=== PATIENT | female | born 1965 | race Caucasian/White ===

== ENCOUNTER → 2020-05-02 11:00 | Outpatient (REF) | payer MEDICAID, SELFPAY ==
--- NOTE | 2020-05-02 11:30 | CA_ITS ---
Transthoracic Echocardiogram Patient (Last, First, Middle): Darlene Woods, Gender: Female Date of : 1965 Age: 54 Procedure Date: 05/02/2020 Procedure Type: Transthoracic Echocardiogram Location: OP Height: 162.56 cm Weight: 72.58 kg BSA: 1.78 m2 Heart Rate: bpm BP: 105 / 66 mmHg [employer] Maintenance Consultant: TERRY Referring MD: Quirino Metcalf MD Symptoms: [facility] [place] Quality: Fair ECG Rhythm: Sinus Conclusions: - The left ventricular systolic function is normal. The visually estimated ejection fraction is between 60-65%. - No obvious valvular pathology seen on this study. Findings Left Ventricle Normal left ventricular cavity size. There is mildly increased left ventricular wall thickness. The left ventricular systolic function is normal. The visually estimated ejection fraction is between 60-65%. There is no evidence of regional wall motion abnormalities. Diastolic function is normal for age. Right Ventricle Normal right ventricular cavity size and systolic function. Atria The left atrium is normal in size. The right atrium is normal in size. Aortic Valve There is a normal trileaflet aortic valve. There is no aortic valve stenosis. There is no aortic valve regurgitation. Mitral Valve The mitral valve appears normal. There is trace mitral valve regurgitation. There is no mitral valve stenosis. Pulmonic Valve The pulmonic valve was not well visualized. Tricuspid Valve Normal tricuspid valve structure. There is trace tricuspid valve regurgitation. The pulmonary artery systolic pressure is normal. Great Vessels The aortic annulus, sinuses of valsalva, and asc aorta are normal in size. Venous The inferior vena cava is normal in size and collapses greater than 50% with inspiration. Pericardium/Pleural There is no evidence of pericardial effusion. Prior Study Comparison No significant change compared to prior study dated: 10/20/2017. Recommendations, Care & Conclusions No obvious valvular pathology seen on this study. Measurements 2D Linear Measurements IVSd: 1.22 0.6-0.9/0.6-1.0 cm LVIDd: 4.25 3.9-5.3/4.2-5.9 cm LVIDd Index: 2.39 2.4-3.2/2.2-3.1 cm/m2 LVIDs: 2.97 2.0-3.6 cm LVPWd: 1.21 0.7-1.1 cm Ao Root: 2.40 2.1-3.5 cm LA Diam: 3.50 2.7-3.8/3.0-4.0 cm LAIDs Index: 1.97 1.5-2.3 cm/m2 LV Mass: 230.16 67-162/88-224 g LV Mass Index: 129.31 43-95/49-115 g/m2 LVOT Diam: 1.90 3.0+(-)1.3 cm 2D Systolic Function EF 4C: 58.60 >55% EF 2C: 70.20 >55% EF BiP: 65.60 >55% Mitral Valve MV Pk E: 0.82 MV PK A: 0.48 MV Decel Time: 182.00 E/A: 1.70 E'Lateral: 10.80 E'Medial: 10.20 E/E' Med: 8.00 E/E' Lat: 7.50 PHT: 53.00 MVA PHT: 4.15 Decel [place]: 4.47 LVOT LVOT Pk Akbar: 1.12 LVOT Mn Akbar: 0.71 LVOT VTI: 0.20 LVOT Pk Grad: 5.00 LVOT Mn Grad: 2.00 LVOT Diam: 1.90 LVOT Area: 2.84 Diastolic Function MV Pk E: 0.82 MV Pk A: 0.48 E/A: 1.70 E'Medial: 10.20 E/E' Med: 8.00 E' Laterial: 10.80 E/E' Lat: 7.50 Tricuspid Valve TR Pk Akbar: 2.24 TR Pk Grad: 20.00 RA Press: 3.00 RVSP: 23.00 Great Vessels Aorta Ao Root-2D: 2.40 2.0-3.7 cm Ao Asc: 2.70 2.1-3.4 cm Ao Arch: 2.70 Updated in Other Vendor System with Status of Final Quirino Metcalf MD electronically signed on 05/05/2020 9:50:52 AM with status of Final
== END ==
LOC: HO.CARD 11:00
PROVIDERS: Visit Provider Internal Medicine
DX: I48.0 Paroxysmal atrial fibrillation (principal)
CPT/HCPCS: 93306

== ENCOUNTER → 2020-06-17 08:53 | Outpatient (BNVA) | payer MEDICAID, SELFPAY | PROVIDERS: PCP Internal Medicine; Referring Provider Internal Medicine; Visit Provider Internal Medicine | DX: I48.0 Paroxysmal atrial fibrillation (principal); I49.8 Other specified cardiac arrhythmias; Z79.01 Long term (current) use of anticoagulants; Z98.890 Other specified postprocedural states | CPT/HCPCS: 99212 ==

== ENCOUNTER → 2020-08-04 09:59 | Outpatient (BNVA) | payer MEDICAID, SELFPAY | PROVIDERS: PCP Internal Medicine; Visit Provider Internal Medicine | DX: I48.0 Paroxysmal atrial fibrillation (principal); I49.8 Other specified cardiac arrhythmias; Z98.890 Other specified postprocedural states; Z51.81 Encounter for therapeutic drug level monitoring; Z79.899 Other long term (current) drug therapy; Z79.01 Long term (current) use of anticoagulants | CPT/HCPCS: 93005; 99212 ==

== ENCOUNTER 2020-08-05 10:29 | Emergency (ER) | payer MEDICAID, SELFPAY ==
[2020-08-05 10:54] VITALS: BP 128/77; PULSE 101; RESP 16; TEMP 36.6; O2SAT 96; BMI 28.3
--- NOTE | 2020-08-05 11:02 | ED_ITS ---
HPI - Skin/Abscess/Foreign Bdy General Chief complaint: Skin/Abscess/Foreign Body Stated complaint: itchy whole body Time Seen by Provider: 08/05/20 10:50 Source: patient Mode of arrival: ambulatory History of Present Illness HPI narrative: 54-year-old female with a past medical history of hypertension, hyperlipidemia, PAF on Xarelto, hypothyroid, presenting to the ED complaining of generalized body pruritus/erythema/rash x a few days. Denies new exposures/products, recent travel, others with similar symptoms, insect bites, new food or medication. Denies shortness of breath, wheezing, oral swelling MD complaint: rash Related Data Home Medications Medication Instructions Recorded Confirmed ferrous sulfate 325 mg (65 mg 325 mg PO DAILY 06/17/20 08/04/20 iron) tablet,delayed release levothyroxine 88 mcg tablet 88 mcg PO DAILY 06/17/20 08/04/20 lisinopril 20 1 tab PO DAILY 06/17/20 08/04/20 mg-hydrochlorothiazide 25 mg tablet rivaroxaban 20 mg tablet 20 mg PO DAILY 06/17/20 08/04/20 simvastatin 40 mg tablet 40 mg PO DAILY 06/17/20 08/04/20 Previous Rx's Medication Instructions Recorded flecainide 150 mg tablet 75 mg PO Q12H 90 Days #90 tab 07/15/20 cetirizine [Zyrtec] 10 mg PO DAILY #14 cap 08/05/20 diphenhydramine HCl [Benadryl] 25 mg PO Q6H PRN #14 cap 08/05/20 prednisone 40 mg PO DAILY 4 Days #8 tab 08/05/20 triamcinolone acetonide 1 appl TOPICAL BID #2 bottle 08/05/20 Allergies Allergy/AdvReac Type Severity Reaction Status Date / Time No Known Allergies Allergy Mild NOT Verified 06/17/20 08:59 APPLICABLE Review of Systems Review of Systems: Constitutional: No Weight loss, No Fever, No Chills ENT/Mouth: No Ear Pain, No Nasal Congestion, No Sinus Pain, No Hoarseness, No sore throat, No Swallowing Difficulty Cardiovascular: No Chest Pain, No SOB Respiratory: No Cough, No Sputum, No Wheezing Skin: No Skin Lesions, + rash Yes all other systems are reviewed and are negative PMFSH Past Medical History Attestation statement: The following information was validated with the patient. Medical History (Updated 08/05/20 @ 11:04 by WINSOME Kramer) Current use of intermodal dispatcher anticoagulation Essential hypertension High cholesterol Junctional rhythm Other and unspecified hyperlipidemia PAF (paroxysmal atrial fibrillation) Thyroid disease Surgical History Status post catheter ablation of atrial fibrillation Family History Family History Father No problems noted. Mother No problems noted. Social History Social History Smoking Status: Never smoker Advance Directives: No Advance Directives Information Provided: No Physical Exam Vital Signs: Vital Signs: Last Vital Signs Temp 97.8 F 08/05/20 10:54 Pulse 101 H 08/05/20 10:54 Resp 16 08/05/20 10:54 BP 128/77 08/05/20 10:54 Pulse Ox 96 08/05/20 10:54 Body Mass Index 28.3 Const: General: cooperative and healthy appearing Orientation/consciousness: patient oriented x3 Limitations: no limitations HENMT: Head: Yes normal to inspection Ears: hearing grossly normal bilaterally General nose exam: Normal external nose present Face and sinus: Yes normal facial exam Mouth: Normal oral and palatal mucosa present Throat: Yes posterior oropharynx normal, Yes uvula midline, No peritonsillar mass and No uvular edema Eyes: General: appearance normal, both eyes and all related structures EOM: EOMs intact bilaterally Neck: Neck: Yes normal visual inspection Resp: Effort & Inspection: normal respiratory effort and no stridor Cardio: Rate: regular rate Skin: Other: Diffuse raised erythematous macules and papules, rash spares palms and soles. No mucous membrane involvement. No evidence of cellulitis Wounds: no wounds Neuro: General: patient oriented x3 Gait exam (Neuro): Normal gait present Extrem: General: Yes normal to inspection MDM - Skin/Abscess/Foreign Bdy MDM Narrative Medical decision making narrative: Exam consistent with you took area. Low concern for TENS/SJS Discharge Plan Discharge Clinical Impression: Urticaria Patient Disposition: Home, Self-Care Instructions: Urticaria (ED) Additional Instructions: You have an urticarial rash. Triamcinolone lotion is a topical steroid, apply to rash, do not apply to face or genital area. Wash hands after use. Prednisone as oral steroids should help with the discomfort/skin swelling. Benadryl help with the itching, take at night, or when you will be home as it makes you drowsy. You may also take Zyrtec during the day which will not make you drowsy. Follow-up with the erp implementation consultant. If her symptoms persist or worsen, you develop any shortness of breath or chest pain, or oral swelling return to the ED Tiene bucky erupci?n de urticaria. La loci?n de triamcinolona es un esteroide t?osei, se aplica al sarpullido, no se aplica en la talita o el ?adina genital. L?vese las amy despu?s de perales uso. La prednisona scottie esteroides orales deber?a ayudar con la incomodidad / hinchaz?n de la piel. Benadryl ayuda con la picaz?n, t?chery por la noche o cuando est? en casa, ya que lo adormece. Tambi?n puede richard Zyrtec miguel el d?a, lo que no le lance? alisa?o. Seguimiento con el dermat?logo. Si june s?ntomas persisten o empeoran, presenta dificultad para r espirar o dolor en el pecho, o hinchaz?n bucal y regresa al servicio de urgencias. Prescriptions: New diphenhydramine HCl [Benadryl] 25 mg capsule 25 mg PO Q6H PRN (Reason: itching) Qty: 14 RF: 0 Zyrtec 10 mg capsule 10 mg PO DAILY Qty: 14 RF: 0 prednisone 20 mg tablet 40 mg PO DAILY 4 Days Qty: 8 RF: 0 triamcinolone acetonide 0.025 % lotion 1 appl topical BID Qty: 2 RF: 0 No Action flecainide 150 mg tablet 75 mg PO Q12H 90 Days Qty: 90 RF: 1 simvastatin 40 mg tablet 40 mg PO DAILY RF: 0 lisinopril-hydrochlorothiazide 20-25 mg tablet 1 tab PO DAILY RF: 0 levothyroxine 88 mcg tablet 88 mcg PO DAILY RF: 0 Xarelto 20 mg tablet 20 mg PO DAILY RF: 0 ferrous sulfate 325 mg (65 mg iron) tablet,delayed release (DR/EC) 325 mg PO DAILY RF: 0 Referrals: Oliver Can MD [Physician] - 2 days Nikita Bermudez MD [Physician] - 2 days Interventions: ED Discharge Assessment Last Done: 08/05/20 11:40 Discharge Date/Time: 08/05/20 11:41 Print Language: Vietnamese
[2020-08-05] MEDS: diphenhydrAMINE HCL 25 MG TABLET PO (11:24)
[2020-08-05] MEDS: predniSONE 20 MG TABLET 40 MG PO (11:24)
== END 2020-08-05 11:41 | disposition home or self-care (01) ==
PROVIDERS: Emergency Provider Emergency Medicine Emergency Medical Services
DX: L50.9 Urticaria, unspecified (principal); Z79.899 Other long term (current) drug therapy
CPT/HCPCS: 99283; Q0163

== ENCOUNTER 2020-08-12 08:11 | Emergency (ER) | payer MEDICAID, SELFPAY ==
[2020-08-12 09:16] VITALS: BP 121/57; PULSE 73; RESP 18; TEMP 36.8; O2SAT 100
--- NOTE | 2020-08-12 09:21 | XR_ITS ---
EXAMINATION: XR CHEST CLINICAL INFORMATION: Chest pain. COMPARISON: Chest 07/07/2019 TECHNIQUE: Two views of the chest were obtained. FINDINGS: No significant abnormality is noted involving the heart, lungs, mediastinum, bony thorax or soft tissues. XR/XR chest 2V IMPRESSION: Unremarkable chest examination.
--- NOTE | 2020-08-12 09:21 | ECG_ITS ---
Test Reason : CP Blood Pressure : / mmHG Vent. Rate : 069 BPM Atrial Rate : 069 BPM P-R Int : 152 ms QRS Dur : 098 ms QT Int : 408 ms P-R-T Axes : 062 048 035 degrees QTc Int : 437 ms Normal sinus rhythm Normal ECG When compared with ECG of 07-JUL-2019 12:27, MI interval has decreased Right bundle branch block is no longer Present Referred By: Ritika Galan Electronically Signed By:RA BARRERA
--- NOTE | 2020-08-12 09:22 | ED_ITS ---
HPI - General Adult General Chief complaint: General Medical <Ritika Galan NP - Last Filed: 08/12/20 09:23> Stated complaint: back pain <Ritika Galan NP - Last Filed: 08/12/20 09:23> Time Seen by Provider: 08/12/20 09:17 <Ritika Galan NP - Last Filed: 08/12/20 09:23> Source: patient <Perfecto Kramer MD - Last Filed: 08/12/20 11:21> Mode of arrival: ambulatory <Perfecto Kramer MD - Last Filed: 08/12/20 11:21> Limitations: language barrier <Perfecto Kramer MD - Last Filed: 08/12/20 11:21> History of Present Illness HPI narrative: history taken by medical scribe. Itching and back pain. Patient states she had redness which is better but she is still itchy. Patient with pain in back and chest for 2 weeks. When patient get the pain it last for 2 hours. <Perfecto Kramer MD - Last Filed: 08/12/20 11:21> Onset (ago): week(s) <Perfecto Kramer MD - Last Filed: 08/12/20 11:21> Location: chest and back <Perfecto Kramre MD - Last Filed: 08/12/20 11:21> Severity: mild <Perfecto Kramer MD - Last Filed: 08/12/20 11:21> Quality: burning <Perfecto Kramer MD - Last Filed: 08/12/20 11:21> Pain Consistency: intermittent <Perfecto Kramer MD - Last Filed: 08/12/20 11:21> Related Data Home medications: Home Medications Medication Instructions Recorded Confirmed ferrous sulfate 325 mg (65 mg 325 mg PO DAILY 06/17/20 08/04/20 iron) tablet,delayed release levothyroxine 88 mcg tablet 88 mcg PO DAILY 06/17/20 08/04/20 lisinopril 20 1 tab PO DAILY 06/17/20 08/04/20 mg-hydrochlorothiazide 25 mg tablet simvastatin 40 mg tablet 40 mg PO DAILY 06/17/20 08/04/20 Previous Rx's Medication Instructions Recorded flecainide 150 mg tablet 75 mg PO Q12H 90 Days #90 tab 07/15/20 cetirizine [Zyrtec] 10 mg PO DAILY #14 cap 08/05/20 diphenhydramine HCl [Benadryl] 25 mg PO Q6H PRN #14 cap 08/05/20 prednisone 40 mg PO DAILY 4 Days #8 tab 08/05/20 triamcinolone acetonide 1 appl TOPICAL BID #2 bottle 08/05/20 rivaroxaban 20 mg tablet 20 mg PO DAILY #90 tab 08/08/20 pantoprazole [Protonix] 40 mg PO DAILY #30 tab 08/12/20 <Ritika Galan NP - Last Filed: 08/12/20 09:23> Allergies/adverse reactions: Allergies Allergy/AdvReac Type Severity Reaction Status Date / Time No Known Allergies Allergy Mild NOT Verified 06/17/20 08:59 APPLICABLE <Ritika Galan NP - Last Filed: 08/12/20 09:23> Review of Systems Constitutional: Constitutional: Reports no additional constitutional co mplaints <Perfecto Kramer MD - Last Filed: 08/12/20 11:21> Eyes: Eyes: Reports no additional eye complaints <Perfecto Kramer MD - Last Filed: 08/12/20 11:21> ENT: Denies dizziness <Perfecto Kramer MD - Last Filed: 08/12/20 11:21> Cardiovascular: Cardiovascular: Reports no additional cardiovascular complaints <Perfecto Kramer MD - Last Filed: 08/12/20 11:21> Respiratory: Respiratory: Reports as per HPI <Perfecto Kramer MD - Last Filed: 08/12/20 11:21> Gastrointestinal: Gastrointestinal: Reports no additional gastrointestinal complaints <Perfecto Kramer MD - Last Filed: 08/12/20 11:21> Genitourinary: Genitourinary: Reports no additional female genitourinary complaints <Perfecto Kramer MD - Last Filed: 08/12/20 11:21> Musculoskeletal: Musculoskeletal: Reports no additional musculoskeletal complaints <Perfecto Kramer MD - Last Filed: 08/12/20 11:21> Integumentary/Breasts: Skin/Breast: Denies rash <Perfecto Kramer MD - Last Filed: 08/12/20 11:21> Neurologic: Reports system reviewed and no additional complaints, except as documented, Denies dizziness and Denies Sensory deficit (Neuro) <Perfecto Kramer MD - Last Filed: 08/12/20 11:21> Psychiatric: Psychiatric: Denies anxiety <Perfecto Kramer MD - Last Filed: 08/12/20 11:21> [facility] Past Medical History Medical History: Medical History Current use of intermodal customer service anticoagulation Essential hypertension High cholesterol Junctional rhythm Other and unspecified hyperlipidemia PAF (paroxysmal atrial fibrillation) Thyroid disease <Ritika Galan NP - Last Filed: 08/12/20 09:23> Surgical History: Surgical History Status post catheter ablation of atrial fibrillation <Ritika Glaan NP - Last Filed: 08/12/20 09:23> Family History Family History: Family History Father No problems noted. Mother No problems noted. <Ritika Galan NP - Last Filed: 08/12/20 09:23> Social History Social History: Social History Alcohol intake: never Smoking Status: Never smoker Use of substances other than those prescribed or required for medical reasons: No Advance Directives: No Advance Directives Information Provided: Yes <Ritika Galan NP - Last Filed: 08/12/20 09:23> Physical Exam Vital Signs: Vital Signs: Last Vital Signs Temp 98.3 F 08/12/20 09:16 Pulse 73 08/12/20 09:16 Resp 18 08/12/20 09:16 BP 121/57 L 08/12/20 09:16 Pulse Ox 100 08/12/20 09:16 Body Mass Index 30.0 <Ritika Galan NP - Last Filed: 08/12/20 09:23> Vital Signs: Last Vital Signs Temp 98.3 F 08/12/20 09:16 Pulse 73 08/12/20 09:16 Resp 18 08/12/20 09:16 BP 121/57 L 08/12/20 09:16 Pulse Ox 100 08/12/20 09:16 Body Mass Index 30.0 <Perfecto Kramer MD - Last Filed: 08/12/20 11:21> Const: General: healthy appearing <Perfecto Kramer MD - Last Filed: 08/12/20 11:21> Nutritional Appearance: average body habitus <Perfecto Kramer MD - Last Filed: 08/12/20 11:21> Orientation/consciousness: oriented to person and patient oriented x3 <Perfecto Kramer MD - Last Filed: 08/12/20 11:21> Limitations: no limitations <Perfecto Kramer MD - Last Filed: 08/12/20 11:21> HENMT: Head: Yes normal to inspection <Perfecto Kramer MD - Last Filed: 08/12/20 11:21> Ears: external ears normal <Perfecto Kramer MD - Last Filed: 08/12/20 11:21> General nose exam: Normal external nose present <Perfecto Kramer MD - Last Filed: 08/12/20 11:21> Mouth: Normal oral and palatal mucosa present and oropharynx normal <Perfecto Kramer MD - Last Filed: 08/12/20 11:21> Throat: Yes posterior oropharynx normal <Perfecto Kramer MD - Last Filed: 08/12/20 11:21> Eyes: General: appearance normal, both eyes and all related structures <Perfecto Kramer MD - Last Filed: 08/12/20 11:21> Neck: Other: supple <Perfecto Kramer MD - Last Filed: 08/12/20 11:21> Neck: Yes normal visual inspection <Perfecto Kramer MD - Last Filed: 08/12/20 11:21> Chest: Chest palpation & inspection: normal inspection of the chest <Perfecto Kramer MD - Last Filed: 08/12/20 11:21> Resp: Auscultation: clear to auscultation bilaterally <Perfecto Kramer MD - Last Filed: 08/12/20 11:21> Cardio: Jugular venous distension: no JVD <Perfecto Kramer MD - Last Filed: 08/12/20 11:21> Rate: regular rate <Perfecto Kramer MD - Last Filed: 08/12/20 11:21> Rhythm: regular rhythm <Perfecto Kramer MD - Last Filed: 08/12/20 11:21> Heart sounds: S1 normal heart sound present and S2 normal heart sound present <Perfecto Kramer MD - Last Filed: 08/12/20 11:21> GI: Inspection: Yes normal to inspection <Perfecto Kramer MD - Last Filed: 08/12/20 11:21> Palpation (GI): Soft to palpation, nontender and No hepatosplenomegaly present <Perfecto Kramer MD - Last Filed: 08/12/20 11:21> Auscultation: normal bowel sounds <Perfecto Kramer MD - Last Filed: 08/12/20 11:21> : General: Yes no CVA tenderness <Perfecto Kramer MD - Last Filed: 08/12/20 11:21> Back/Spine/Pelvis: Back: no CVA tenderness <Perfecto Kramer MD - Last Filed: 08/12/20 11:21> Skin: General skin exam: no rashes or lesions noted <Perfecto Kramer MD - Last Filed: 08/12/20 11:21> Neuro: General: oriented to person and patient oriented x3 <Perfecto Kramer MD - Last Filed: 08/12/20 11:21> Cranial nerves: Yes CN's II-XII intact bilaterally <Perfecto Kramer MD - Last Filed: 08/12/20 11:21> Motor exam (neuro): 5/5 motor strength present throughout <Perfecto Kramer MD - Last Filed: 08/12/20 11:21> Sensory Exam: No Sensory deficit (Neuro) <Perfecto Kramer MD - Last Filed: 08/12/20 11:21> Extrem: General: Yes normal to inspection <Perfecto Kramer MD - Last Filed: 08/12/20 11:21> Psych: Appearance: grossly normal <Perfecto Kramer MD - Last Filed: 08/12/20 11:21> Course Course Course Narrative: 0920-This serves as a rapid medical exam. 54 yo female here with generalized body itching not relieved with prednisone, benadryl at home and now chest pain/back pain and shortness of breath x 1 week. Seen here 08/03 and referred to derm, has not called. Stable vital signs. NO visible rash. Will check EKG, CXR, labs. Deferred additional HPI, ROS, PE to primary provider. <Ritika Galan NP - Last Filed: 08/12/20 09:23> EKG and troponin are normal, doubt cardiac event will dc on pepcid <Perfecto Kramer MD - Last Filed: 08/12/20 11:21> Medical Decision Making [facility] Narrative Medical decision making narrative: no evidence of allergic reaction, no EKG or troponin evidence that her symptoms are cardiac, patient describes symptoms as likely GERD <Perfecto Kramer MD - Last Filed: 08/12/20 11:21> Lab Data Result diagrams: : 08/12/20 09:49 08/12/20 09:49 <Ritika Galan NP - Last Filed: 08/12/20 09:23> Labs: Lab Results 08/12/20 08/12/20 08/12/20 Range/Units 09:49 09:49 09:49 WBC 8.3 (4.8-10.8) X10*3/uL RBC 4.24 (4.20-5.50) X10*6/uL Hgb 13.0 (12.0-16.0) g/dl Hct 38.6 (37-47) % MCV 91.0 (80-98) fL MCH 30.7 (27.0-33.0) pg MCHC 33.7 (31.0-35.0) g/dl RDW 12.7 (11.0-16.0) % Plt Count 229 (160-400) X10*3/uL MPV 11.4 (9.4-12.3) fL Immature Gran % (Auto) 0.4 (0.0-0.4) % Neut % (Auto) 77.0 H (45-73) % Lymph % (Auto) 14.4 L (20-40) % [place] % (Auto) 6.6 (2-11) % Eos % (Auto) 1.2 (0-4) % Baso % (Auto) 0.4 (0-2) % Lymph # (Auto) 1.2 (1.2-4.9) X10*3/uL [place] # (Auto) 0.6 (0.1-1.2) X10*3/uL Eos # (Auto) 0.1 (0.0-0.4) X10*3/uL Baso # (Auto) 0.0 (0.0-0.2) X10*3/uL Abs Immat Gran (auto) 0.03 (0.00-0.03) X10*3/uL Absolute Neuts (auto) 6.4 (2.0-8.3) X10*3/uL Absolute Nucleated RBC 0.000 (0.0-0.012) X10*3/uL Nucleated RBC % (auto) 0.0 (0.0-0.2) /100WBC Hold Blue Top SEE NOTE Sodium 140 (135-145) mmol/L Potassium 3.7 (3.3-5.1) mmol/l Chloride 97 (96-108) mmol/L Carbon Dioxide 33 H (22-29) mmol/L Anion Gap 14 (12-20) BUN 27 H (9-16) mg/dL Creatinine 0.98 (0.5-1.4) mg/dL Estim Creat Clear Calc 65.3 Estimated GFR 59 Random Glucose 134 H (60-115) mg/dL Calcium 9.3 (8.4-10.2) mg/dL Magnesium 2.1 (1.6-2.6) mg/dL Total Bilirubin 0.6 (0.0-1.0) mg/dL Direct Bilirubin 0.2 (0.0-0.5) mg/dL AST 12 (5-31) U/L ALT 10 (0-31) U/L Alkaline Phosphatase 110 (39-117) U/L Troponin I High Sens (<3.5-17.0) ng/L Total Protein 7.8 (6.5-8.0) g/dL Albumin 4.5 (3.5-5.0) g/dL Lipase 36 (8-78) U/L 08/12/20 Range/Units 09:49 WBC (4.8-10.8) X10*3/uL RBC (4.20-5.50) X10*6/uL Hgb (12.0-16.0) g/dl Hct (37-47) % MCV (80-98) fL MCH (27.0-33.0) pg MCHC (31.0-35.0) g/dl RDW (11.0-16.0) % Plt Count (160-400) X10*3/uL MPV (9.4-12.3) fL Immature Gran % (Auto) (0.0-0.4) % Neut % (Auto) (45-73) % Lymph % (Auto) (20-40) % [place] % (Auto) (2-11) % Eos % (Auto) (0-4) % Baso % (Auto) (0-2) % Lymph # (Auto) (1.2-4.9) X10*3/uL [place] # (Auto) (0.1-1.2) X10*3/uL Eos # (Auto) (0.0-0.4) X10*3/uL Baso # (Auto) (0.0-0.2) X10*3/uL Abs Immat Gran (auto) (0.00-0.03) X10*3/uL Absolute Neuts (auto) (2.0-8.3) X10*3/uL Absolute Nucleated RBC (0.0-0.012) X10*3/uL Nucleated RBC % (auto) (0.0-0.2) /100WBC Hold Blue Top Sodium (135-145) mmol/L Potassium (3.3-5.1) mmol/l Chloride (96-108) mmol/L Carbon Dioxide (22-29) mmol/L Anion Gap (12-20) BUN (9-16) mg/dL Creatinine (0.5-1.4) mg/dL Estim Creat Clear Calc Estimated GFR Random Glucose (60-115) mg/dL Calcium (8.4-10.2) mg/dL Magnesium (1.6-2.6) mg/dL Total Bilirubin (0.0-1.0) mg/dL Direct Bilirubin (0.0-0.5) mg/dL AST (5-31) U/L ALT (0-31) U/L Alkaline Phosphatase (39-117) U/L Troponin I High Sens < 3.5 (<3.5-17.0) ng/L Total Protein (6.5-8.0) g/dL Albumin (3.5-5.0) g/dL Lipase (8-78) U/L <Ritika Galan RN PERIOPERATIVE - Last Filed: 08/12/20 09:23> Lab Results 08/12/20 08/12/20 08/12/20 Range/Units 09:49 09:49 09:49 WBC 8.3 (4.8-10.8) X10*3/uL RBC 4.24 (4.20-5.50) X10*6/uL Hgb 13.0 (12.0-16.0) g/dl Hct 38.6 (37-47) % MCV 91.0 (80-98) fL MCH 30.7 (27.0-33.0) pg MCHC 33.7 (31.0-35.0) g/dl RDW 12.7 (11.0-16.0) % Plt Count 229 (160-400) X10*3/uL MPV 11.4 (9.4-12.3) fL Immature Gran % (Auto) 0.4 (0.0-0.4) % Neut % (Auto) 77.0 H (45-73) % Lymph % (Auto) 14.4 L (20-40) % [place] % (Auto) 6.6 (2-11) % Eos % (Auto) 1.2 (0-4) % Baso % (Auto) 0.4 (0-2) % Lymph # (Auto) 1.2 (1.2-4.9) X10*3/uL [place] # (Auto) 0.6 (0.1-1.2) X10*3/uL Eos # (Auto) 0.1 (0.0-0.4) X10*3/uL Baso # (Auto) 0.0 (0.0-0.2) X10*3/uL Abs Immat Gran (auto) 0.03 (0.00-0.03) X10*3/uL Absolute Neuts (auto) 6.4 (2.0-8.3) X10*3/uL Absolute Nucleated RBC 0.000 (0.0-0.012) X10*3/uL Nucleated RBC % (auto) 0.0 (0.0-0.2) /100WBC Hold Blue Top SEE NOTE Sodium 140 (135-145) mmol/L Potassium 3.7 (3.3-5.1) mmol/l Chloride 97 (96-108) mmol/L Carbon Dioxide 33 H (22-29) mmol/L Anion Gap 14 (12-20) BUN 27 H (9-16) mg/dL Creatinine 0.98 (0.5-1.4) mg/dL Estim Creat Clear Calc 65.3 Estimated GFR 59 Random Glucose 134 H (60-115) mg/dL Calcium 9.3 (8.4-10.2) mg/dL Magnesium 2.1 (1.6-2.6) mg/dL Total Bilirubin 0.6 (0.0-1.0) mg/dL Direct Bilirubin 0.2 (0.0-0.5) mg/dL AST 12 (5-31) U/L ALT 10 (0-31) U/L Alkaline Phosphatase 110 (39-117) U/L Troponin I High Sens (<3.5-17.0) ng/L Total Protein 7.8 (6.5-8.0) g/dL Albumin 4.5 (3.5-5.0) g/dL Lipase 36 (8-78) U/L 08/12/20 Range/Units 09:49 WBC (4.8-10.8) X10*3/uL RBC (4.20-5.50) X10*6/uL Hgb (12.0-16.0) g/dl Hct (37-47) % MCV (80-98) fL MCH (27.0-33.0) pg MCHC (31.0-35.0) g/dl RDW (11.0-16.0) % Plt Count (160-400) X10*3/uL MPV (9.4-12.3) fL Immature Gran % (Auto) (0.0-0.4) % Neut % (Auto) (45-73) % Lymph % (Auto) (20-40) % [place] % (Auto) (2-11) % Eos % (Auto) (0-4) % Baso % (Auto) (0-2) % Lymph # (Auto) (1.2-4.9) X10*3/uL [place] # (Auto) (0.1-1.2) X10*3/uL Eos # (Auto) (0.0-0.4) X10*3/uL Baso # (Auto) (0.0-0.2) X10*3/uL Abs Immat Gran (auto) (0.00-0.03) X10*3/uL Absolute Neuts (auto) (2.0-8.3) X10*3/uL Absolute Nucleated RBC (0.0-0.012) X10*3/uL Nucleated RBC % (auto) (0.0-0.2) /100WBC Hold Blue Top Sodium (135-145) mmol/L Potassium (3.3-5.1) mmol/l Chloride (96-108) mmol/L Carbon Dioxide (22-29) mmol/L Anion Gap (12-20) BUN (9-16) mg/dL Creatinine (0.5-1.4) mg/dL Estim Creat Clear Calc Estimated GFR Random Glucose (60-115) mg/dL Calcium (8.4-10.2) mg/dL Magnesium (1.6-2.6) mg/dL Total Bilirubin (0.0-1.0) mg/dL Direct Bilirubin (0.0-0.5) mg/dL AST (5-31) U/L ALT (0-31) U/L Alkaline Phosphatase (39-117) U/L Troponin I High Sens < 3.5 (<3.5-17.0) ng/L Total Protein (6.5-8.0) g/dL Albumin (3.5-5.0) g/dL Lipase (8-78) U/L <Perfecto Kramer MD - Last Filed: 08/12/20 11:21> ECG Data Attestation: I personally reviewed and interpreted this ECG as follows: <Perfecto Kramer MD - Last Filed: 08/12/20 11:21> Interpretation: sinus rate of 70, no st or twave changes <Perfecto Kramer MD - Last Filed: 08/12/20 11:21> Discharge Plan Discharge Clinical Impression: Chest pain due to GERD <Ritika Galan NP - Last Filed: 08/12/20 09:23> Patient Disposition: Home, Self-Care <Ritika Galan NP - Last Filed: 08/12/20 09:23> Instructions: Chest Pain (ED), Gastroesophageal Reflux Disease (ED) <Ritika Galan NP - Last Filed: 08/12/20 09:23> Prescriptions: New pantoprazole [Protonix] 40 mg tablet,delayed release (DR/EC) 40 mg PO DAILY Qty: 30 RF: 0 No Action flecainide 150 mg tablet 75 mg PO Q12H 90 Days Qty: 90 RF: 1 rivaroxaban [Xarelto] 20 mg tablet 20 mg PO DAILY Qty: 90 RF: 3 diphenhydramine HCl [Benadryl] 25 mg capsule 25 mg PO Q6H PRN (Reason: itching) Qty: 14 RF: 0 Zyrtec 10 mg capsule 10 mg PO DAILY Qty: 14 RF: 0 prednisone 20 mg tablet 40 mg PO DAILY 4 Days Qty: 8 RF: 0 triamcinolone acetonide 0.025 % lotion 1 appl topical BID Qty: 2 RF: 0 simvastatin 40 mg tablet 40 mg PO DAILY RF: 0 lisinopril-hydrochlorothiazide 20-25 mg tablet 1 tab PO DAILY RF: 0 levothyroxine 88 mcg tablet 88 mcg PO DAILY RF: 0 ferrous sulfate 325 mg (65 mg iron) tablet,delayed release (DR/EC) 325 mg PO DAILY RF: 0 <Ritika Galan NP - Last Filed: 08/12/20 09:23> Referrals: [facility] [Primary Care Provider] - 2 days Rohini Meng MD [Physician] - 2 days <Ritika Galan NP - Last Filed: 08/12/20 09:23>
[2020-08-12 10:08] LABS: MANUAL DIFF FLAG NO
[2020-08-12 10:13] LABS: Basophils Percent Auto 0.4 % (0-2); Eosinophils Absolute Auto 0.1 X10*3/uL (0.0-0.4); Eosinophils Percent Auto 1.2 % (0-4); Hematocrit 38.6 % (37-47); Imm Gran Abs Auto 0.03 X10*3/uL (0.00-0.03); Imm Gran Pct Auto 0.4 % (0.0-0.4); Lymphocytes Absolute Auto 1.2 X10*3/uL (1.2-4.9); Lymphocytes Percent Auto 14.4 % (20-40); Mean Corpuscular HGB Conc 33.7 g/dl (31.0-35.0); Mean Corpuscular Hemoglobin 30.7 pg (27.0-33.0); Mean Platelet Volume 11.4 fL (9.4-12.3); Monocytes Absolute Auto 0.6 X10*3/uL (0.1-1.2); Monocytes Percent Auto 6.6 % (2-11); Neutrophils Absolute Auto 6.4 X10*3/uL (2.0-8.3); Platelet Count 229 X10*3/uL (160-400); Red Blood Count 4.24 X10*6/uL (4.20-5.50); Red Cell Distribution Width 12.7 % (11.0-16.0); White Blood Count 8.3 X10*3/uL (4.8-10.8)
--- NOTE | 2020-08-12 10:30 | PC.NURSE ---
blood labs obtained and sent, ekg and cxr completed, provider at bedside for primary eval.
[2020-08-12 10:36] LABS: Alanine Aminotransferase 10 U/L (0-31); Albumin Level 4.5 g/dL (3.5-5.0); Alkaline Phosphatase 110 U/L (39-117); Anion Gap 14 (12-20); Aspartate Amino Transferase 12 U/L (5-31); Bilirubin Direct 0.2 mg/dL (0.0-0.5); Bilirubin Total 0.6 mg/dL (0.0-1.0); Blood Urea Nitrogen 27 mg/dL (9-16); Calcium 9.3 mg/dL (8.4-10.2); Carbon Dioxide 33 mmol/L (22-29); Chloride 97 mmol/L (96-108); Creatinine Clr Calc Pharmacy 65.3; Estimated Glomerular Filt Rate 59; Glucose Random 134 mg/dL (60-115); Lipase 36 U/L (8-78); Magnesium 2.1 mg/dL (1.6-2.6); Potassium 3.7 mmol/l (3.3-5.1); Sodium 140 mmol/L (135-145); Total Protein 7.8 g/dL (6.5-8.0)
[2020-08-12 10:38] LABS: Troponin-I High Sensitivity < 3.5 ng/L (<3.5-17.0)
[2020-08-12] MEDS: Famotidine 20 MG TABLET PO (10:45)
--- NOTE | 2020-08-18 13:54 | ECG_ITS ---
Hook-up date: 2020-08-18 11:27:00 Duration: 47:59:00 Test Indications: AFIB Medications: 782006 QRS complexes 1 Ventricular ectopics which represent <1 % of total QRS comp. 564 Supraventricular ectopics which represent <1 % of total QRS comp. * Paced QRS complexs which represent % of total QRS comp. VENTRICULAR ECTOPY 1 Isolated 0 Bigeminal Cycles 0 Couplets 0 Runs 0 Beats in Runs * Beats LONGEST at * BPM at :: -- * Beats FASTEST at * BPM at :: -- SUPRAVENTRICULAR ECTOPY 448 Isolated 34 Couplets 10 Runs 48 Beats in Runs 11 Beats LONGEST at 57 BPM at 23:37:13 2020-08-19 7 Beats FASTEST at 85 BPM at 14:10:15 2020-08-19 HEART RATES 44 MIN at 00:56:19 2020-08-19 63 AVG 97 MAX at 11:33:49 2020-08-19 LONGEST RR 1.6480 secs at 07:15:26 2020-08-20 S-T LEVELS Channel 1 - 128 mm at 11:27:00 2020-08-18 - 128 mm at 11:27:00 2020-08-18 Channel 2 - 128 mm at 11:27:00 2020-08-18 - 128 mm at 11:27:00 2020-08-18 Channel 3 - 128 mm at 03:04:61 -- - 128 mm at 03:04:61 Underlying rhythm is sinus; Average ventricular rate 63/min; range 44-97/min; About 52% of the time, ventricular rate <60/min; Occasional supraventricular ectopy; No evidence of atrial fibrillation; Patient did not report any symptoms in the diary Referred By: Ra Barrera Overread By: RA BARRERA
== END 2020-08-12 11:47 | disposition home or self-care (01) ==
PROVIDERS: Nurse Practitioner Family; Emergency Provider Emergency Medicine
DX: R07.89 Other chest pain (principal); K21.9 Gastro-esophageal reflux disease without esophagitis; I10 Essential (primary) hypertension; I48.0 Paroxysmal atrial fibrillation; Z79.01 Long term (current) use of anticoagulants
CPT/HCPCS: 36415; 71046; 80048; 80076; 83690; 83735; 84484; 85025; 93005; 99283; 99284

== ENCOUNTER → 2020-08-18 09:35 | Outpatient (BNVA) | payer MEDICAID, SELFPAY | PROVIDERS: Visit Provider Internal Medicine | DX: Z98.890 Other specified postprocedural states (principal) | CPT/HCPCS: 93226 ==

== ENCOUNTER 2020-11-12 09:49 | Emergency (ER) | payer MEDICAID, SELFPAY ==
--- NOTE | ~2020-11-12 | XR_ITS ---
EXAMINATION: RIGHT WRIST AND LEFT CALCANEUS CLINICAL INFORMATION: Pain and swelling COMPARISON: None TECHNIQUE: 4 views right wrist and 3 views left calcaneus FINDINGS: Right wrist: There is no visible acute fracture, dislocation subluxation seen. The soft tissues are normal. Left calcaneus: There is a moderate size calcaneal and retrocalcaneal enthesophytes. The soft tissues are normal. The ankle mortise and subtalar joints are normal. XR/XR calcaneus LT min 2V IMPRESSION: No visible fracture or dislocation right wrist. No bony abnormality. Moderate size calcaneal heel and retrocalcaneal enthesophytes
--- NOTE | ~2020-11-12 | XR_ITS ---
EXAMINATION: RIGHT WRIST AND LEFT CALCANEUS CLINICAL INFORMATION: Pain and swelling COMPARISON: None TECHNIQUE: 4 views right wrist and 3 views left calcaneus FINDINGS: Right wrist: There is no visible acute fracture, dislocation subluxation seen. The soft tissues are normal. Left calcaneus: There is a moderate size calcaneal and retrocalcaneal enthesophytes. The soft tissues are normal. The ankle mortise and subtalar joints are normal. XR/XR wrist RT min 3V IMPRESSION: No visible fracture or dislocation right wrist. No bony abnormality. Moderate size calcaneal heel and retrocalcaneal enthesophytes
[2020-11-12 12:23] VITALS: BP 138/48; PULSE 66; RESP 16; TEMP 36.7; O2SAT 99; BMI 28.3
--- NOTE | 2020-11-12 13:15 | ED.GENADULT ---
HPI - General Adult General Chief complaint: General Medical Stated complaint: wrist and heel pain Time Seen by Provider: 11/12/20 12:25 Source: patient Mode of arrival: ambulatory Limitations: language barrier History of Present Illness HPI narrative: 54 y/o female with history of atrial fibrillation s/p ablation, HTN, hypothyroidism and HLD who presents to the ED with 2 week history of non-traumatic right wrist pain and left heel pain. She has been putting off coming to get evaluated due to fear of COVID-19. She states she has had worsening pain in her right wrist that starts on the distal radial side and radiates proximally. She noted some swelling the last week or so. She has worsening pain when moving her thumb. She denies injury or trauma. She is right hand dominant and using her right hand for ADLs has become increasingly difficutlt. She has been taking Tylenol with no improvement. She denies redness or warmth to the area. She also reports non-traumatic left heel pain. No hx DM. Did not step on anything. No lesions on her foot. She is ambulating normally but she reports pain in the center of the bottom of her heel when she puts pressure on it. MD complaint: right wrist pain and left heel pain Onset (ago): week(s) (2) Location: left, right, upper extremity and lower extremity Radiation: proximal Severity: moderate Quality: aching Pain Consistency: intermittent Relieving factors: immobilization and rest Exacerbating factors: movement Associated symptoms: denies other symptoms Treatments prior to arrival: none Related Data Home Medications Medication Instructions Recorded Confirmed ferrous sulfate 325 mg (65 mg 325 mg PO DAILY 06/17/20 08/04/20 iron) tablet,delayed release levothyroxine 88 mcg tablet 88 mcg PO DAILY 06/17/20 08/04/20 lisinopril 20 1 tab PO DAILY 06/17/20 08/04/20 mg-hydrochlorothiazide 25 mg tablet simvastatin 40 mg tablet 40 mg PO DAILY 06/17/20 08/04/20 Previous Rx's Medication Instructions Recorded flecainide 150 mg tablet 75 mg PO Q12H 90 Days #90 tab 07/15/20 cetirizine [Zyrtec] 10 mg PO DAILY #14 cap 08/05/20 diphenhydramine HCl [Benadryl] 25 mg PO Q6H PRN #14 cap 08/05/20 prednisone 40 mg PO DAILY 4 Days #8 tab 08/05/20 triamcinolone acetonide 1 appl TOPICAL BID #2 bottle 08/05/20 rivaroxaban 20 mg tablet 20 mg PO DAILY #90 tab 08/08/20 pantoprazole [Protonix] 40 mg PO DAILY #30 tab 08/12/20 Allergies Allergy/AdvReac Type Severity Reaction Status Date / Time No Known Allergies Allergy Mild NOT Verified 06/17/20 08:59 APPLICABLE Review of Systems Review of Systems: Constitutional: No Fever, No Chills Cardiovascular: No Chest Pain, No SOB Respiratory: No Cough, No Sputum Gastrointestinal: No Nausea, No Vomiting Musculoskeletal: + joint pain, No Myalgias Skin: No Skin Lesions, No rash Neuro: No Weakness, No Numbness Heme/Lymph: No Bruising PMFSH Past Medical History Attestation statement: The following information was validated with the patient. Medical History Current use of jail anticoagulation Essential hypertension High cholesterol Junctional rhythm Other and unspecified hyperlipidemia PAF (paroxysmal atrial fibrillation) Thyroid disease Surgical History Status post catheter ablation of atrial fibrillation Family History Family History Father No problems noted. Mother No problems noted. Social History Social History Alcohol intake: never Smoking Status: Never smoker Advance Directives: No Advance Directives Information Provided: Yes Physical Exam Vital Signs: Vital Signs: Last Vital Signs Temp 98.1 F 11/12/20 12:23 Pulse 66 11/12/20 12:23 Resp 16 11/12/20 12:23 BP 138/48 L 11/12/20 12:23 Pulse Ox 99 11/12/20 12:23 Body Mass Index 28.3 Appearance: Alert. Oriented X3. No acute distress. HEENT: normal inspection CVS: Normal heart rate and rhythm. Pulses normal. Respiratory: No respiratory distress. Skin: Skin warm and dry. Normal skin color. Normal skin turgor. No rashes. Extremities: right wrist on radial side with tenderness along extensor tendon of the thumb with mild swelling, no ertythema or warmth, normal ROM, NV intact distally. left heel with tenderness to lateral aspects, normal inspection without lesion, swelling or erythema. Neuro: Oriented X 3. No motor deficit. No sensory deficit. Course Course Course Narrative: 54 yo female with history of PAF s/p ablation, HTN, HLD who presents with non-traumatic right wrist pain and left heel pain. Mild swelling with some tenderness along radial aspect of right wrist - will get XR's. Reevaluation(s) Reevaluation #1: XR of wrist is negative. Possible tendonitis - will splint with velcro wrist splint and refer to ortho. She is on Xarelto for afib so unable to use NSAID. Rest and ice recommended. She has been counseled and encouraged to come back to the ER if pain worsens and f/u with Orthopedics. Discharge Plan Discharge Clinical Impression: Pain in right wrist, Bone spur of foot Patient Disposition: Home, Self-Care Instructions: Tendinitis (ED) Additional Instructions: Your wrist x-ray today was normal. Your pain may be due to inflammation of one of the tendons in your lower arm. Recommend rest, ice and immobilization with the velco wrist splint provided to you in the ER today. Recommend follow up with Orthopedics in 1 week if you are still having pain. Your foot x-ray showed some bone spurs in your heel. This is likely what is causing your discomfort. Recommend supportive shoes and over the counter orthotic inserts for your shoes. Follow up with your Primary Care doctor for this. If you have worsening pain or swelling come back to the ER for further evaluation. La radiograf?a de tu mu?eca de hoy fue normal. Humphrey dolor puede deberse a la inflamaci?n de anshu de los tendones de la parte inferior del brazo. Recomiende reposo, hielo e inmovilizaci?n con la f?raysa de mu?eca Velco que se le proporcion? en la rafael de emergencias hoy. Recomiende un seguimiento con [facility] en 1 semana si todav?a tiene dolor. La radiograf?a de humphrey pie mostr? algunos espolones ?seos en humphrey mitali?n. Es probable que esto sea lo que est? causando humphrey malestar. Recomiende zapatos de apoyo y plantillas ortop?dicas de venta wilder para june zapatos. Janki un seguimiento con humphrey m?dico de atenci?n primaria para esto. Si el dolor o la hinchaz?n empeoran, regrese a la rafael de emergencias para bucky evaluaci?n adicional. Prescriptions: No Action flecainide 150 mg tablet 75 mg PO Q12H 90 Days Qty: 90 RF: 1 rivaroxaban [Xarelto] 20 mg tablet 20 mg PO DAILY Qty: 90 RF: 3 pantoprazole [Protonix] 40 mg tablet,delayed release (DR/EC) 40 mg PO DAILY Qty: 30 RF: 0 diphenhydramine HCl [Benadryl] 25 mg capsule 25 mg PO Q6H PRN (Reason: itching) Qty: 14 RF: 0 Zyrtec 10 mg capsule 10 mg PO DAILY Qty: 14 RF: 0 prednisone 20 mg tablet 40 mg PO DAILY 4 Days Qty: 8 RF: 0 triamcinolone acetonide 0.025 % lotion 1 appl topical BID Qty: 2 RF: 0 simvastatin 40 mg tablet 40 mg PO DAILY RF: 0 lisinopril-hydrochlorothiazide 20-25 mg tablet 1 tab PO DAILY RF: 0 levothyroxine 88 mcg tablet 88 mcg PO DAILY RF: 0 ferrous sulfate 325 mg (65 mg iron) tablet,delayed release (DR/EC) 325 mg PO DAILY RF: 0 Referrals: Darnell Fournier MD [Physician] - 1 week (right wrist pain)
--- NOTE | 2020-11-12 14:14 | PC.NURSE ---
wrist splint applied
== END 2020-11-12 14:26 | disposition home or self-care (01) ==
PROVIDERS: Emergency Provider Emergency Medicine; PCP Internal Medicine
DX: M25.531 Pain in right wrist (principal); M77.32 Calcaneal spur, left foot; I10 Essential (primary) hypertension; E78.49 Other hyperlipidemia; I48.0 Paroxysmal atrial fibrillation; Z79.01 Long term (current) use of anticoagulants; Z79.899 Other long term (current) drug therapy; Z79.02 Long term (current) use of antithrombotics/antiplatelets
CPT/HCPCS: 73110; 73650; 99283

== ENCOUNTER → 2020-11-19 09:49 | Outpatient (BNVA) | payer MEDICAID, SELFPAY | PROVIDERS: PCP Internal Medicine; Visit Provider Internal Medicine | DX: I48.0 Paroxysmal atrial fibrillation (principal); I49.8 Other specified cardiac arrhythmias; Z51.81 Encounter for therapeutic drug level monitoring; Z98.890 Other specified postprocedural states; Z79.899 Other long term (current) drug therapy; Z79.01 Long term (current) use of anticoagulants | CPT/HCPCS: 99212 ==

== ENCOUNTER → 2020-11-25 09:42 | Outpatient (BNVA) | payer MEDICAID, SELFPAY | PROVIDERS: PCP Internal Medicine; Visit Provider Orthopaedic Surgery | DX: M65.4 Radial styloid tenosynovitis [de Quervain] (principal) | CPT/HCPCS: 20550; 99202; J1100 ==

== ENCOUNTER → 2021-01-07 10:27 | Outpatient (BNVA) | payer MEDICAID, SELFPAY | PROVIDERS: PCP Internal Medicine; Visit Provider Orthopaedic Surgery | DX: M65.4 Radial styloid tenosynovitis [de Quervain] (principal) | CPT/HCPCS: 99212 ==

== ENCOUNTER 2021-01-19 10:42 | Outpatient (REF) | payer MEDICAID, SELFPAY | END 2021-01-19 10:43 | disposition home or self-care (01) | LOC: HO.MDS 10:42 | PROVIDERS: PCP Internal Medicine; Visit Provider Internal Medicine Medical Oncology | DX: D50.9 Iron deficiency anemia, unspecified (principal) | CPT/HCPCS: 96365; J2916 ==

== ENCOUNTER 2021-01-29 08:36 | Day surgery (SDC) | payer MEDICAID, SELFPAY ==
[2021-01-29 08:49] VITALS: BMI 26.6
[2021-01-29 08:57] VITALS: BP 137/62; PULSE 80; RESP 16; TEMP 35.9; O2SAT 99
--- NOTE | 2021-01-29 11:16 | P.OP_ITS ---
Operative Note Operative Note Date of Service: 01/29/21 Narrative: Operative Note Preop diagnosis: 1. right DeQuervain's tenosynovitis Postop diagnosis: 1. right DeQuervain's tenosynovitis Procedure: 1. right 1st dorsal compartment release Surgeon: Natasha Rico MD Anesthesia: local block using 1% lidocaine with epinephrine Findings: Thickened 1st dorsal compartment. EBL: Less than 5 mL Tourniquet time: None Specimens: None Complications: None Disposition: Brought to recovery room in stable condition Plan: Follow-up for 7-10 days for wound check and suture removal Indications: The patient is 55 years old, with right DeQuervain's tenosynovitis that has been unresponsive to nonoperative management. The risks and benefits of operative treatment including but not limited to risk of damage to blood vessels, nerves, tendons, infection, persistent pain, persistent symptoms, recurrence or possible need for additional surgery were discussed with the patient and the patient wishes to proceed with surgery. Procedure: Once consent was obtained a local block was performed in the preop area using a combination of 1% lidocaine with epinephrine. The patient was then brought back to the operating suite and placed on the operative table in supine position. A tourniquet was applied to the proximal aspect of the right upper extremity and the limb was prepped and draped in a standard surgical fashion. Once assured that we had a good block, a 1.5 cm longitudinal incision was made centered over the 1st dorsal compartment as it passed over the radial styloid of the right wrist. The incision was made through the skin to the subcutaneous tissues using a #15 blade. Careful dissection was made down to the level of the 1st dorsal compartment using tenotomy scissors, with care being taken to protect the nearby branches of the superficial radial nerve. Once the 1st dorsal compartment was exposed, A longitudinal incision was made in the 1st dorsal compartment 1st using a #15 blade, then using tenotomy scissors under direct visualization. The 1st dorsal compartment was noted to be thickened. Both the APL and EPB tendons were in the same compartment more proximally, then the EPB tendon entered its own compartment for short distance. This compartment was also released longitudinally using tenotomy scissors. Following our release, we saw smooth gliding abductor pollicis longus and extensor pollicis brevis tend ons. Once satisfied with our 1st dorsal compartment release the wound was copiously irrigated with normal saline and hemostasis was obtained with a brief period of local pressure. The subcutaneous layer was closed with some 4-0 Vicryl suture, and the skin edges were reapproximated with some 5.0 nylon suture material. A sterile dressing was applied. The patient appears to have tolerated the procedure well and with no complications. All digits were well vascularized at the conclusion of the case.
--- NOTE | 2021-01-29 11:16 | MHC.SHP ---
Pre-Procedural Eval Section A Date of Service: 01/29/21 Section B Chief Complaint: radial styloid tenosynovitis Allergies: Allergies Allergy/AdvReac Type Severity Reaction Status Date / Time No Known Allergies Allergy Mild NOT Verified 11/25/20 10:22 APPLICABLE Plan I have reviewed the history and physical and performed a pertinent physical examination on my patient. No changes have occurred unless specified.
[2021-01-29 12:04] VITALS: BP 134/71; PULSE 61; RESP 18; TEMP 36.5; O2SAT 99
== END 2021-01-29 12:25 | disposition home or self-care (01) ==
PROVIDERS: PCP Internal Medicine; Visit Provider Orthopaedic Surgery
PROC: (CPT 25000; principal; 2021-01-29 11:40)
DX: M65.4 Radial styloid tenosynovitis [de Quervain] (principal); I10 Essential (primary) hypertension; E78.5 Hyperlipidemia, unspecified; E78.00 Pure hypercholesterolemia, unspecified; I48.0 Paroxysmal atrial fibrillation; E07.9 Disorder of thyroid, unspecified; Z79.01 Long term (current) use of anticoagulants; Z79.52 Long term (current) use of systemic steroids; Z79.899 Other long term (current) drug therapy
CPT/HCPCS: 25000

== ENCOUNTER 2021-01-30 10:50 | Outpatient (REF) | payer MEDICAID, SELFPAY | END 2021-01-30 10:51 | disposition home or self-care (01) | LOC: HO.MDS 10:50 | PROVIDERS: PCP Internal Medicine; Visit Provider Internal Medicine Medical Oncology | DX: D50.9 Iron deficiency anemia, unspecified (principal) | CPT/HCPCS: 96365; J2916 ==

== ENCOUNTER 2021-02-03 10:57 | Outpatient (REF) | payer MEDICAID, SELFPAY | END 2021-02-03 10:58 | disposition home or self-care (01) | LOC: HO.MDS 10:57 | PROVIDERS: PCP Internal Medicine; Visit Provider Internal Medicine Medical Oncology | DX: D50.9 Iron deficiency anemia, unspecified (principal) | CPT/HCPCS: 96365; J2916 ==

== ENCOUNTER → 2021-02-09 10:19 | Outpatient (BNVA) | payer MEDICAID, SELFPAY | PROVIDERS: PCP Internal Medicine; Visit Provider Physician Assistant | DX: M65.4 Radial styloid tenosynovitis [de Quervain] (principal) | CPT/HCPCS: 99212 ==

== ENCOUNTER 2021-02-13 10:45 | Outpatient (REF) | payer MEDICAID, SELFPAY ==
[2021-02-13 11:04] LABS: MANUAL DIFF FLAG NO
[2021-02-13 11:07] LABS: Basophils Percent Auto 0.2 % (0-2); Eosinophils Absolute Auto 0.1 X10*3/uL (0.0-0.4); Eosinophils Percent Auto 1.5 % (0-4); Hematocrit 34.9 % (37-47); Hemoglobin 11.9 g/dl (12.0-16.0); Imm Gran Abs Auto 0.02 X10*3/uL (0.00-0.03); Imm Gran Pct Auto 0.3 % (0.0-0.4); Lymphocytes Absolute Auto 1.4 X10*3/uL (1.2-4.9); Lymphocytes Percent Auto 23.5 % (20-40); Mean Corpuscular HGB Conc 34.1 g/dl (31.0-35.0); Mean Corpuscular Hemoglobin 30.6 pg (27.0-33.0); Mean Corpuscular Volume 89.7 fL (80-98); Mean Platelet Volume 11.1 fL (9.4-12.3); Monocytes Absolute Auto 0.4 X10*3/uL (0.1-1.2); Monocytes Percent Auto 7.2 % (2-11); Neutrophils Percent Auto 67.3 % (45-73); Platelet Count 186 X10*3/uL (160-400); Red Blood Count 3.89 X10*6/uL (4.20-5.50); Red Cell Distribution Width 12.7 % (11.0-16.0)
[2021-02-13 11:53] LABS: Ferritin 413 ng/mL (10-250)
== END 2021-02-13 10:46 | disposition home or self-care (01) ==
LOC: HO.MDS 10:45
PROVIDERS: PCP Internal Medicine; Visit Provider Internal Medicine Medical Oncology
DX: D50.9 Iron deficiency anemia, unspecified (principal)
CPT/HCPCS: 36415; 82728; 85025; J2916

== ENCOUNTER → 2021-02-23 09:38 | Outpatient (BNVA) | payer MEDICAID, SELFPAY | PROVIDERS: PCP Internal Medicine; Visit Provider Internal Medicine | DX: I48.0 Paroxysmal atrial fibrillation (principal); I49.8 Other specified cardiac arrhythmias; Z51.81 Encounter for therapeutic drug level monitoring; Z98.890 Other specified postprocedural states; Z79.899 Other long term (current) drug therapy; Z79.01 Long term (current) use of anticoagulants | CPT/HCPCS: 93005; 99212 ==

== ENCOUNTER → 2021-03-12 12:45 | Outpatient (REF) | payer MEDICAID, SELFPAY ==
--- NOTE | ~2021-03-12 | US_ITS ---
EXAMINATION: US PELVIS CLINICAL INFORMATION: Left lower quadrant pain COMPARISON: None TECHNIQUE: Ultrasound of the pelvis is performed using both transabdominal and transvaginal transducers along with Doppler. Transvaginal imaging is performed due to inadequate visualization transabdominally. FINDINGS: Uterus: The uterus is anteverted and measures 6.5 x 2.6 x 3.1 cm. Small right-sided fundal fibroid is noted measuring 11 mm unchanged The double wall endometrial thickness is 2 mm. The uterus is smooth in contour and has normal myometrial echogenicity. No new findings. Adnexa: No adnexal mass. Right ovary normal at 1 mL in volume. Left ovary not visualized. No fluid collection or free fluid. US/US pelvic and transvaginal IMPRESSION: Stable of solitary fibroid. Stable normal appearance of the right ovary. Left ovary not visualized but no gross adnexal lesion.
== END ==
LOC: HO.SL 12:45
PROVIDERS: PCP Internal Medicine; Visit Provider Advanced Practice Midwife
DX: R10.32 Left lower quadrant pain (principal)
CPT/HCPCS: 76830; 76856; 95806

== ENCOUNTER 2021-03-18 12:44 | Outpatient (REF) | payer MEDICAID, SELFPAY ==
--- NOTE | ~2021-03-18 | MM_ITS ---
EXAMINATION: MM DIAGNOSTIC DIGITAL BREAST TOMOSYNTHESIS, BILATERAL US DIAGNOSTIC ULTRASOUND BREAST, LEFT CLINICAL INFORMATION: 5-year-old with intermittent lower outer left breast pain for approximately 4 months. No palpable mass or discharge. No breast pain today. No known family history breast cancer. The lifetime risk of breast cancer based on the Tyrer-Cuzick Model is 9%. COMPARISON: Mammography: 01/02/2019, 03/03/2018; targeted left breast ultrasound 01/02/2019 TECHNIQUE: Digital breast tomosynthesis is performed in both the craniocaudal and mediolateral oblique views along with computer-aided detection (CAD). Synthesized 2D images are generated from the tomosynthesis. Ultrasound left breast is targeted to the outer quadrants 1:00 through 6:00 position. Grayscale imaging and color Doppler are performed without and with harmonics. FINDINGS: The breasts are heterogeneously dense, which may obscure small masses (ACR BI-RADS breast composition Category c). There are no significant masses, abnormal calcifications, or other abnormalities. Parenchymal pattern is similar to prior studies. There is no developing density. No skin thickening or coarsening of the Maxim's ligaments. The axilla and skin contours are unremarkable. Ultrasound demonstrates no cystic or solid mass or architectural abnormality. No focal duct ectasia. No skin thickening or edema tracking in soft tissue planes. No focal hyperemia. Results are discussed with the patient at time of visit, using an diplomatic interpreter/translator. MM/MM tomosynthesis diagnostic BI IMPRESSION: No mammographic evidence of malignancy or inflammatory changes. Unremarkable targeted left breast ultrasound ASSESSMENT: BI-RADS 1: Negative RECOMMENDATION: 1. Patient's intermittent left breast pain should be managed based on the clinical impression. 2. Otherwise, routine annual screening mammography. This patient's information was entered into a reminder system with a target due date for their next mammogram.
--- NOTE | ~2021-03-18 | XR_ITS ---
EXAMINATION: XR LUMBOSACRAL SPINE CLINICAL INFORMATION: Lower back pain. COMPARISON: None TECHNIQUE: Three views of the lumbosacral spine. FINDINGS: Minimal levocurvature of the lumbar spine as well as straightening of the normal lumbar lordosis, which may be positional or related to muscular spasm. No acute fracture or subluxation. No loss of vertebral body height. Loss of intervertebral disc height with anterior endplate osteophytic at L2-S1. Mild multilevel bilateral facet arthropathy. No lytic or blastic osseous lesion. Mild to moderate stool burden. XR/XR lumbar spine 2-3V IMPRESSION: Minimal levocurvature of the lumbar spine with straightening of the lumbar lordosis, which may be positional or related to muscular spasm. Mild to moderate degenerative disc disease at L2-S1 with mild multilevel bilateral facet arthropathy. Mild to moderate stool burden.
== END 2021-03-18 12:45 | disposition home or self-care (01) ==
LOC: HO.MAMMO 12:44
PROVIDERS: PCP Internal Medicine; Visit Provider Advanced Practice Midwife
DX: N64.4 Mastodynia (principal); M54.5 Low back pain
CPT/HCPCS: 72100; 76642; 77062; 77066

== ENCOUNTER → 2021-05-13 09:11 | Outpatient (BNVA) | payer MEDICAID, SELFPAY | PROVIDERS: PCP Internal Medicine; Visit Provider Internal Medicine | DX: G47.33 Obstructive sleep apnea (adult) (pediatric) (principal); F51.04 Psychophysiologic insomnia | CPT/HCPCS: 99202 ==

== ENCOUNTER 2021-06-29 08:02 | Outpatient (REF) | payer MEDICAID, SELFPAY ==
[2021-06-29 09:10] LABS: Blood Urea Nitrogen 27 mg/dL (9-16); Estimated Glomerular Filt Rate 54
== END 2021-06-29 08:03 | disposition home or self-care (01) ==
LOC: HO.LAB 08:02
PROVIDERS: PCP Internal Medicine; Visit Provider Internal Medicine
DX: Z00.00 Encounter for general adult medical examination without abnormal findings (principal)
CPT/HCPCS: 36415; 82565; 84520

== ENCOUNTER 2021-07-03 06:44 | Outpatient (REF) | payer MEDICAID, SELFPAY ==
--- NOTE | ~2021-07-03 | CT_ITS ---
EXAMINATION: CT ABDOMEN AND PELVIS WITH CONTRAST CLINICAL INFORMATION: Left lower quadrant pain. Increased bloating COMPARISON: 08/27/2018 TECHNIQUE: Multidetector volumetric images were obtained from the superior aspect of the liver through the pubic symphysis following administration 85 mL of Omnipaque 350 intravenous contrast. Sagittal and coronal reformatted images were obtained on the technologist's workstation. Oral contrast: No This CT examination was performed using dose optimization techniques as appropriate, variously including the following: *Automated exposure control *Adjustment of mA and/or kV according to patient size (this includes techniques or standardized protocols for targeted exams where dose is matched to indication/reason for exam; i.e. extremities or head) *Use of iterative reconstruction technique DLP: 454 mGy-cm FINDINGS: LUNG BASES: The visualized lung bases are unremarkable. LIVER, GALLBLADDER, AND BILIARY TREE: The liver is normal in size, shape, and attenuation. No focal hepatic lesion or biliary ductal dilatation is present. The gallbladder is unremarkable with no evidence of radiopaque gallstones, gallbladder wall thickening, or obvious pericholecystic inflammatory changes. PANCREAS: Unremarkable. SPLEEN: Unremarkable. ADRENAL GLANDS: Unremarkable. KIDNEYS AND URETERS: The kidneys are normal in size, shape, and attenuation. No hydronephrosis, hydroureter, or calculi seen. No perinephric stranding. BLADDER: Unremarkable. GASTROINTESTINAL TRACT: The small and large bowel are unremarkable. The appendix is unremarkable. ABDOMINAL WALL: No significant hernia is appreciated. LYMPH NODES: Normal. VASCULAR: Unremarkable. PELVIC VISCERA: The uterus and adnexa are unremarkable. OSSEOUS STRUCTURES: Unremarkable. CT/CT abdomen pelvis w con IMPRESSION: No acute CT findings. No etiology for the patient's symptoms identified. No evidence of colitis or diverticulitis. No evidence of bowel obstruction or ascites.
[2021-07-03] MEDS: iohexoL 350 MG/ML 100 ML INFUS..BTL IV (09:41)
== END 2021-07-03 06:45 | disposition home or self-care (01) ==
LOC: HO.CT 06:44
PROVIDERS: Visit Provider Internal Medicine
DX: R10.32 Left lower quadrant pain (principal); R14.0 Abdominal distension (gaseous)
CPT/HCPCS: 74177; Q9967

== ENCOUNTER → 2021-07-27 13:01 | Outpatient (REF) | payer MEDICAID, SELFPAY ==
--- NOTE | 2021-07-27 13:41 | ECG_ITS ---
Hook-up date: 2021-07-27 13:25:00 Duration: 08:48:00 Test Indications: PALPITATIONS, PAF Medications: 33026 QRS complexes * Ventricular ectopics which represent % of total QRS comp. * Supraventricular ectopics which represent % of total QRS comp. * Paced QRS complexs which represent % of total QRS comp. VENTRICULAR ECTOPY * Isolated * Bigeminal Cycles * Couplets * Runs * Beats in Runs * Beats LONGEST at * BPM at :: -- * Beats FASTEST at * BPM at :: -- SUPRAVENTRICULAR ECTOPY * Isolated * Couplets * Runs * Beats in Runs * Beats LONGEST at * BPM at :: -- * Beats FASTEST at * BPM at :: -- HEART RATES 48 MIN at 17:48:56 2021-07-27 62 AVG 102 MAX at 13:44:30 2021-07-27 LONGEST RR 1.4560 secs at 18:00:54 2021-07-27 S-T LEVELS Channel 1 - 128 mm at 13:25:00 2021-07-27 - 128 mm at 13:25:00 2021-07-27 Channel 2 - 128 mm at 13:25:00 2021-07-27 - 128 mm at 13:25:00 2021-07-27 Channel 3 - 128 mm at 03:24:41 -- - 128 mm at 03:24:41 Underlying rhythm is sinus; Average ventricular rate 62/min; range 48-102/min; About 56% of the time, rate <60/min; No signifiant ectopy, tachy or tim arrhythmias; No symptoms mentioned in patient diary. Referred By: Ra Barrera Overread By: RA BARRERA
== END ==
LOC: HO.CARD 13:01
PROVIDERS: Visit Provider Internal Medicine
DX: R00.2 Palpitations (principal)
CPT/HCPCS: 93225; 93226

== ENCOUNTER → 2021-08-25 13:35 | Outpatient (BNVA) | payer MEDICAID, SELFPAY | PROVIDERS: PCP Internal Medicine; Referring Provider Internal Medicine; Visit Provider Nurse Practitioner Family | DX: G47.33 Obstructive sleep apnea (adult) (pediatric) (principal); F51.04 Psychophysiologic insomnia | CPT/HCPCS: 99202 ==

== ENCOUNTER → 2021-08-31 08:56 | Outpatient (BNVA) | payer MEDICAID, SELFPAY | PROVIDERS: PCP Internal Medicine; Referring Provider Internal Medicine; Visit Provider Internal Medicine | DX: I48.0 Paroxysmal atrial fibrillation (principal); I49.8 Other specified cardiac arrhythmias; I10 Essential (primary) hypertension; G47.33 Obstructive sleep apnea (adult) (pediatric); Z79.01 Long term (current) use of anticoagulants; Z51.81 Encounter for therapeutic drug level monitoring; Z98.890 Other specified postprocedural states; Z79.899 Other long term (current) drug therapy | CPT/HCPCS: 93005; 99212 ==

== ENCOUNTER 2021-09-02 12:31 | Outpatient (REF) | payer MEDICAID, SELFPAY ==
--- NOTE | ~2021-09-02 | US_ITS ---
EXAMINATION: US PELVIS CLINICAL INFORMATION: Left lower quadrant/lower abdominal pain. COMPARISON: None TECHNIQUE: Ultrasound of the pelvis is performed using both transabdominal and transvaginal transducers along with Doppler. Transvaginal imaging is performed due to inadequate visualization transabdominally. FINDINGS: Uterus: The uterus is anteverted and measures 5.9 in length, 2.3 cm in AP and 4.7 cm wide. The double wall endometrial thickness is 0.3 mm. The uterus is smooth in contour and has normal myometrial echogenicity. There is a solitary hypoechoic lesion in the anterior upper body of uterus measuring 1.2 x 0.8 x 1.2 cm consistent fibroid. Previously it measured 1.1 x 0.9 x 1.1 cm.. Adnexa: Both ovaries are visualized. There is normal color flow to the adnexa. There is no ovarian torsion. There is no pelvic ascites or fluid collection. Right ovary measures 2.3 x 1.2 x 1.5 CM and volume 2.2 mL. Ovaries are no focal lesion seen. Previously right ovary measured 2.3 x 1.2 x 1.5 cm and volume 2.2 mL. Left ovary measures 2. 602.4 x 1.6 cm and volume 5.2 mL. Previously left ovary was not seen. There is no free fluid seen in the cul-de-sac US/US pelvic and transvaginal IMPRESSION: Stable solitary fibroid. The uterus it is otherwise unremarkable. The ovaries are unremarkable.
== END 2021-09-02 12:32 | disposition home or self-care (01) ==
LOC: HO.US 12:31
PROVIDERS: Visit Provider Emergency Medicine
DX: R10.32 Left lower quadrant pain (principal)
CPT/HCPCS: 76830; 76856

== ENCOUNTER 2021-09-24 10:27 | Outpatient (REF) | payer MEDICAID, SELFPAY ==
--- NOTE | ~2021-09-24 | XR_ITS ---
EXAMINATION: XR CERVICAL SPINE CLINICAL INFORMATION: Cervicalgia COMPARISON: None TECHNIQUE: 6 views of the cervical spine, inclusive of flexion and extension views, were obtained. FINDINGS: No acute fracture or traumatic malalignment. Vertebral body heights maintained. Endplate osteophytes present throughout the cervical spine. Disc space height is relatively preserved. Mild facet arthropathy throughout cervical spine. Oblique views demonstrate mild left osseous neural foraminal encroachment at C2-C3 and C5-C6. No significant osseous neural foraminal encroachment on right. Paraspinal soft tissues unremarkable. XR/XR cervical spine min 6V IMPRESSION: No acute findings. Cervical spondylosis as described.
== END 2021-09-24 10:28 | disposition home or self-care (01) ==
LOC: HO.XRAY 10:27
PROVIDERS: PCP Internal Medicine; Visit Provider Internal Medicine
DX: M54.2 Cervicalgia (principal)
CPT/HCPCS: 72052

== ENCOUNTER → 2021-10-09 13:59 | Outpatient (BNVA) | payer MEDICAID, SELFPAY | PROVIDERS: PCP Internal Medicine; Visit Provider Nurse Practitioner Family | DX: G47.33 Obstructive sleep apnea (adult) (pediatric) (principal); F51.04 Psychophysiologic insomnia | CPT/HCPCS: 99212 ==

== ENCOUNTER → 2021-11-27 08:54 | Outpatient (BNVA) | payer MEDICAID, SELFPAY | PROVIDERS: PCP Internal Medicine; Visit Provider Nurse Practitioner Family | DX: F51.04 Psychophysiologic insomnia (principal) | CPT/HCPCS: 99212 ==

== ENCOUNTER → 2021-12-14 10:04 | Outpatient (BNVA) | payer MEDICAID, SELFPAY | PROVIDERS: PCP Internal Medicine; Referring Provider Internal Medicine; Visit Provider Internal Medicine | DX: I48.0 Paroxysmal atrial fibrillation (principal); I49.8 Other specified cardiac arrhythmias; I10 Essential (primary) hypertension; G47.33 Obstructive sleep apnea (adult) (pediatric); Z98.890 Other specified postprocedural states; Z51.81 Encounter for therapeutic drug level monitoring; Z79.899 Other long term (current) drug therapy | CPT/HCPCS: 93005; 99212 ==

== ENCOUNTER → 2022-01-29 10:00 | Outpatient (BNVA) | payer MEDICAID, SELFPAY | PROVIDERS: PCP Internal Medicine; Visit Provider Nurse Practitioner Family | DX: F51.04 Psychophysiologic insomnia (principal); F41.9 Anxiety disorder, unspecified; Z79.899 Other long term (current) drug therapy | CPT/HCPCS: 99212 ==

== ENCOUNTER 2022-02-18 11:22 | Outpatient (REF) | payer MEDICAID, SELFPAY ==
--- NOTE | ~2022-02-18 | MM_ITS ---
EXAMINATION: MM SCREENING DIGITAL BREAST TOMOSYNTHESIS, BILATERAL CLINICAL INFORMATION: Screening. Asymptomatic. The lifetime risk of breast cancer based on the Tyrer-Cuzick Model is 6%. COMPARISON: Mammography: 03/18/2021, 01/02/2019, 03/03/2018 TECHNIQUE: Digital breast tomosynthesis is performed in both the craniocaudal and mediolateral oblique views along with computer-aided detection (CAD). Synthesized 2D images are generated from the tomosynthesis. FINDINGS: The breasts are heterogeneously dense, which may obscure small masses (ACR BI-RADS breast composition Category c). There are no significant masses, abnormal calcifications, or other abnormalities. There are scattered shifting fibroglandular parenchymal densities from year to year related to variation in positioning. No developing density or architectural abnormality. The axilla and skin contours are unremarkable. No significant changes. MM/MM tomosynthesis screening BI IMPRESSION: No significant changes from prior studies. ASSESSMENT: BI-RADS 1: Negative RECOMMENDATION: Routine annual mammography screening. This patient's information was entered into a reminder system with a target due date for their next mammogram.
== END 2022-02-18 11:23 | disposition home or self-care (01) ==
LOC: HO.MAMMO 11:22
PROVIDERS: PCP Internal Medicine; Visit Provider Advanced Practice Midwife
DX: Z12.31 Encounter for screening mammogram for malignant neoplasm of breast (principal)
CPT/HCPCS: 77063; 77067

== ENCOUNTER 2022-04-19 07:37 | Outpatient (REF) | payer MEDICAID, SELFPAY ==
--- NOTE | ~2022-04-19 | XR_ITS ---
EXAMINATION: XR ANKLE, RIGHT CLINICAL INFORMATION: Diffusion. Pain. COMPARISON: None. TECHNIQUE: AP, lateral, and mortise views of the right ankle. FINDINGS: No acute fracture or dislocation. The ankle mortise is maintained. No osseous erosion. Small plantar and dorsal calcaneal spurs. Lateral soft tissue swelling. XR/XR ankle RT min 3V IMPRESSION: Lateral soft tissue swelling without acute osseous abnormality.
[2022-04-19 08:00] LABS: MANUAL DIFF FLAG NO
[2022-04-19 08:36] LABS: Basophils Percent Auto 0.2 % (0-2); Eosinophils Absolute Auto 0.1 X10*3/uL (0.0-0.4); Eosinophils Percent Auto 2.6 % (0-4); Hematocrit 32.8 % (37.0-47.0); Hemoglobin 10.9 g/dl (12.0-16.0); Imm Gran Abs Auto 0.02 X10*3/uL (0.00-0.03); Imm Gran Pct Auto 0.4 % (0.0-0.4); Lymphocytes Absolute Auto 1.2 X10*3/uL (1.2-4.9); Lymphocytes Percent Auto 26.5 % (20-40); Mean Corpuscular HGB Conc 33.2 g/dl (31.0-35.0); Mean Corpuscular Hemoglobin 29.5 pg (27.0-33.0); Mean Corpuscular Volume 88.9 fL (80.0-98.0); Mean Platelet Volume 11.4 fL (9.4-12.3); Monocytes Absolute Auto 0.4 X10*3/uL (0.1-1.2); Monocytes Percent Auto 7.8 % (2-11); Neutrophils Absolute Auto 2.9 x10*3/uL (2.0-8.3); Neutrophils Percent Auto 62.5 % (45-73); Platelet Count 164 X10*3/uL (160-400); Red Blood Count 3.69 X10*6/uL (4.20-5.50); Red Cell Distribution Width 13.8 % (11.0-16.0); White Blood Count 4.6 X10*3/uL (4.8-10.8)
[2022-04-19 08:49] LABS: Estimated Average Glucose 97 mg/dL
[2022-04-19 09:15] LABS: Alanine Aminotransferase 18 U/L (0-31); Albumin Level 4.1 g/dL (3.5-5.0); Alkaline Phosphatase 100 U/L (39-117); Anion Gap 16 (12-20); Aspartate Amino Transferase 18 U/L (5-31); Bilirubin Total 0.5 mg/dL (0.0-1.0); Blood Urea Nitrogen 25 mg/dL (9-16); Carbon Dioxide 27 mmol/L (22-29); Chloride 101 mmol/L (96-108); Cholesterol 173 mg/dL; Estimated Glomerular Filt Rate 55; Glucose Random 100 mg/dL (60-115); HDL Cholesterol 49 mg/dL; LDL Cholesterol Calculated 94 mg/dl; Potassium 3.9 mmol/L (3.3-5.1); Sodium 140 mmol/L (135-145); Total Protein 6.9 g/dL (6.5-8.0); Triglycerides 150 mg/dL
[2022-04-19 09:25] LABS: Vitamin D 25-OH Total 21.2 ng/mL (>30)
[2022-04-19 09:43] LABS: Vitamin B12 244 pg/mL (200-900)
[2022-04-20 18:37] LABS: LDL Cholesterol Direct 87 mg/dL (<100)
== END 2022-04-19 07:38 | disposition home or self-care (01) ==
LOC: HO.XRAY 07:37
PROVIDERS: PCP Internal Medicine; Visit Provider Internal Medicine
DX: M25.471 Effusion, right ankle (principal); E03.9 Hypothyroidism, unspecified; E78.5 Hyperlipidemia, unspecified; G47.00 Insomnia, unspecified; I10 Essential (primary) hypertension; I48.0 Paroxysmal atrial fibrillation
CPT/HCPCS: 36415; 73610; 80053; 80061; 82306; 82607; 83036; 83721; 85025

== ENCOUNTER 2022-04-20 12:10 | Outpatient (REF) | payer MEDICAID, SELFPAY ==
[2022-04-20 14:07] LABS: Iron 79 mcg/dL (30-160); Percent Iron Saturation 26 % (15-50); Total Iron Binding Capacity 300 mcg/dL (228-428); Unsaturated Iron Binding 221 ug/dL
[2022-04-20 14:27] LABS: Ferritin 267 ng/mL (10-250)
== END 2022-04-20 12:11 | disposition home or self-care (01) ==
LOC: HO.LAB 12:10
PROVIDERS: PCP Internal Medicine; Visit Provider Internal Medicine
DX: D64.9 Anemia, unspecified (principal)
CPT/HCPCS: 36415; 82728; 83540

== ENCOUNTER 2022-04-22 16:06 | Outpatient (REF) | payer MEDICAID, SELFPAY ==
--- NOTE | ~2022-04-22 | MR_ITS ---
EXAMINATION: MR LUMBAR SPINE WITHOUT CONTRAST CLINICAL INFORMATION: Lower back pain. Right lower extremity sciatica. COMPARISON: CT abdomen and pelvis 07/03/2021. TECHNIQUE: MRI of the lumbar spine was obtained using routine sequences without contrast. FINDINGS: Alignment is normal. Vertebral heights are preserved. No acute bone marrow signal changes. There is a slight loss of intervertebral disc height and T2 signal intensity at multiple levels related to disc degeneration. The tip of the conus medullaris is located at L1. No mass effect on the conus. Visualized distal cord signal intensity is normal. At L1-L2 the annular contour is normal. No canal or neuroforaminal compromise. At L2-L3 there is a slightly bulging disc. No canal stenosis. No mass effect on the traversing or foraminal nerve roots. At L3-L4 there is an asymmetrically bulging disc to the left. Bilateral facet degenerative change. No canal stenosis. Mild mass effect on the extraforaminal segment of left L3 nerve root. At L4-L5 there is a broad shallow left central protrusion superimposed upon a bulging disc. Bilateral facet degenerative change. No canal stenosis. There is asymmetric narrowing of the left subarticular zone causing subtle abutment of the left traversing L5 nerve roots. No foraminal nerve root compression. At L5-S1 there is a shallow central protrusion superimposed upon a bulging disc. Bilateral facet degenerative change. No canal stenosis. Partial effacement of perineural fat with no more than mild mass effect on the left L5 foraminal nerve roots. Limited visualization of the retroperitoneal anatomy reveals no abnormal finding. Psoas and paraspinal muscle groups are symmetric. MR/MR lumbar spine wo con IMPRESSION: There is disc degeneration at multiple levels within the lumbar spine. And asymmetrically bulging disc at L3-L4 causes mild mass effect on the extraforaminal segment of the left L3 nerve root. A shallow left central protrusion at L4-L5 causes subtle abutment of left traversing L5 nerve roots. There is also mild mass effect on the left L5 foraminal nerve roots related to degenerative changes at L5-S1. No canal stenosis.
== END 2022-04-22 16:07 | disposition home or self-care (01) ==
LOC: HO.MRI 16:06
PROVIDERS: Visit Provider Internal Medicine
DX: M54.16 Radiculopathy, lumbar region (principal)
CPT/HCPCS: 72148

== ENCOUNTER → 2022-05-21 08:45 | Outpatient (BNVA) | payer MEDICAID, SELFPAY | PROVIDERS: PCP Internal Medicine; Visit Provider Nurse Practitioner Family | DX: F51.04 Psychophysiologic insomnia (principal); F41.9 Anxiety disorder, unspecified | CPT/HCPCS: 99212 ==

== ENCOUNTER 2022-06-07 08:57 | Outpatient (REF) | payer MEDICAID, SELFPAY ==
--- NOTE | ~2022-06-07 | XR_ITS ---
EXAMINATION: XR HIP, RIGHT CLINICAL INFORMATION: Osteoarthritis right hip. COMPARISON: Bilateral hips 07/02/2015. TECHNIQUE: Single view pelvis with 2 additional hip of the right hip. FINDINGS: There has been progression of degenerative changes in the right hip with increase in acetabular osteophytes and some subchondral cystic change in the femoral head. A 2.5 cm well-circumscribed lytic lesion with thin sclerotic margin is again noted and is unchanged in the intertrochanteric. No acute fractures. XR/XR hip RT w [id number] IMPRESSION: Progression of degenerative changes in the right hip.
== END 2022-06-07 08:58 | disposition home or self-care (01) ==
LOC: HO.XRAY 08:57
PROVIDERS: PCP Internal Medicine; Visit Provider Anesthesiology
DX: M51.36 Other intervertebral disc degeneration, lumbar region (principal); M47.26 Other spondylosis with radiculopathy, lumbar region; M16.11 Unilateral primary osteoarthritis, right hip
CPT/HCPCS: 73502; 99202

== ENCOUNTER → 2022-06-16 07:56 | Outpatient (BNVA) | payer MEDICAID, SELFPAY | PROVIDERS: PCP Internal Medicine; Visit Provider Nurse Practitioner Family | DX: F51.04 Psychophysiologic insomnia (principal); F41.9 Anxiety disorder, unspecified | CPT/HCPCS: 99212 ==

== ENCOUNTER → 2022-06-21 10:09 | Outpatient (BNVA) | payer MEDICAID, SELFPAY | PROVIDERS: PCP Internal Medicine; Referring Provider Internal Medicine; Visit Provider Internal Medicine | DX: I48.0 Paroxysmal atrial fibrillation (principal); I10 Essential (primary) hypertension; G47.33 Obstructive sleep apnea (adult) (pediatric); Z98.890 Other specified postprocedural states | CPT/HCPCS: 99212 ==

== ENCOUNTER → 2022-06-23 09:25 | Outpatient (BNVA) | payer MEDICAID, SELFPAY | PROVIDERS: PCP Internal Medicine; Visit Provider Anesthesiology | DX: M51.36 Other intervertebral disc degeneration, lumbar region (principal); M47.816 Spondylosis without myelopathy or radiculopathy, lumbar region; M16.11 Unilateral primary osteoarthritis, right hip; M76.30 Iliotibial band syndrome, unspecified leg | CPT/HCPCS: 99212 ==

== ENCOUNTER → 2022-07-30 09:24 | Outpatient (BNVA) | payer MEDICAID, SELFPAY | PROVIDERS: PCP Internal Medicine; Visit Provider Orthopaedic Surgery | DX: M76.30 Iliotibial band syndrome, unspecified leg (principal); M62.89 Other specified disorders of muscle | CPT/HCPCS: 99202 ==

== ENCOUNTER → 2022-08-30 09:50 | Outpatient (BNVA) | payer MEDICAID, SELFPAY | PROVIDERS: PCP Internal Medicine; Visit Provider Nurse Practitioner Family | DX: F51.04 Psychophysiologic insomnia (principal); F41.9 Anxiety disorder, unspecified; Z79.899 Other long term (current) drug therapy | CPT/HCPCS: 99212 ==

== ENCOUNTER → 2022-09-03 12:43 | Outpatient (BNVA) | payer MEDICAID, SELFPAY | PROVIDERS: PCP Internal Medicine; Visit Provider Nurse Practitioner Family | DX: M16.11 Unilateral primary osteoarthritis, right hip (principal); M62.89 Other specified disorders of muscle; M76.31 Iliotibial band syndrome, right leg; M47.816 Spondylosis without myelopathy or radiculopathy, lumbar region; E66.9 Obesity, unspecified; Z68.30 Body mass index [BMI] 30.0-30.9, adult | CPT/HCPCS: 99212 ==

== ENCOUNTER 2022-10-26 10:10 | Outpatient (REF) | payer MEDICAID, SELFPAY ==
--- NOTE | ~2022-10-26 | XR_ITS ---
EXAMINATION: XR HIP LEFT XR HIP RIGHT CLINICAL INFORMATION: Pain for 2-3 months. No trauma. COMPARISON: 07/02/2015 and 06/07/2022 TECHNIQUE: Right hip, 2 views Left hip, 2 views FINDINGS: Right hip: The articular cartilage space is well-preserved. The femoral head is properly positioned within the acetabulum. No fracture or subluxation. 2.5 cm lucency with sclerotic border in the intertrochanteric area is unchanged compared to 07/02/2015, consistent with benign finding, possibly old fibrous lesion including potential liposclerosing myxofibrous lesion. Left hip: The articular cartilage space is well-preserved. The femoral head is properly positioned within the acetabulum. There are no findings of any significant degenerative or inflammatory arthropathy. No suspicious bone lesion. The visualized pelvic bones are normal. XR/XR hip LT min 2V IMPRESSION: * No acute abnormalities within the visualized pelvis or hips. No fracture. No specific source of pain is identified. * No evidence of any significant arthritic process at either hip.
--- NOTE | ~2022-10-26 | XR_ITS ---
EXAMINATION: XR HIP LEFT XR HIP RIGHT CLINICAL INFORMATION: Pain for 2-3 months. No trauma. COMPARISON: 07/02/2015 and 06/07/2022 TECHNIQUE: Right hip, 2 views Left hip, 2 views FINDINGS: Right hip: The articular cartilage space is well-preserved. The femoral head is properly positioned within the acetabulum. No fracture or subluxation. 2.5 cm lucency with sclerotic border in the intertrochanteric area is unchanged compared to 07/02/2015, consistent with benign finding, possibly old fibrous lesion including potential liposclerosing myxofibrous lesion. Left hip: The articular cartilage space is well-preserved. The femoral head is properly positioned within the acetabulum. There are no findings of any significant degenerative or inflammatory arthropathy. No suspicious bone lesion. The visualized pelvic bones are normal. XR/XR hip RT min 2V IMPRESSION: * No acute abnormalities within the visualized pelvis or hips. No fracture. No specific source of pain is identified. * No evidence of any significant arthritic process at either hip.
== END 2022-10-26 10:11 | disposition home or self-care (01) ==
LOC: HO.XRAY 10:10
PROVIDERS: Visit Provider Registered Nurse
DX: M25.551 Pain in right hip (principal); M25.552 Pain in left hip
CPT/HCPCS: 73502

== ENCOUNTER 2022-11-17 12:39 | Outpatient (REF) | payer MEDICAID, SELFPAY ==
--- NOTE | ~2022-11-17 | US_ITS ---
EXAMINATION: US PELVIS CLINICAL INFORMATION: Chronic left lower quadrant pain. COMPARISON: Ultrasound pelvis and transvaginal 09/02/2021. TECHNIQUE: Ultrasound of the pelvis is performed using both transabdominal and transvaginal transducers along with Doppler. Transvaginal imaging is performed due to inadequate visualization transabdominally. FINDINGS: Uterus: The uterus is anteverted, anteflexed and measures 6.0 x 3.1 x 3.1 cm. The double wall endometrial thickness is 5 mm. The uterus is smooth in contour and has normal myometrial echogenicity. There is a solitary hypoechoic lesion in the anterior upper body of uterus measuring 1.0 x 0.8 x 0.8 cm. Previously it measured 1.2 x 0.8 x 1.2 cm. Adnexa: Both ovaries are visualized. There is normal color flow to the adnexa. There is no ovarian torsion. There is no pelvic ascites or fluid collection. Right ovary measures 1.7 x 1.2 x 1.2 cm and volume 1.3 mL; appears unremarkable. Previously right ovary measured 2.3 x 1.2 x 1.5 cm. Left ovary is not visualized. There is no free fluid. US/US pelvic and transvaginal IMPRESSION: 1. Stable uterine fibroid. 2. The right ovary is unremarkable. 3. The left ovary is not seen. 4. There is no free fluid in the cul-de-sac.
== END 2022-11-17 12:40 | disposition home or self-care (01) ==
LOC: HO.US 12:39
PROVIDERS: PCP Internal Medicine; Visit Provider Registered Nurse
DX: R10.32 Left lower quadrant pain (principal); G89.29 Other chronic pain
CPT/HCPCS: 76830; 76856

== ENCOUNTER 2022-12-07 08:58 | Outpatient (REF) | payer MEDICAID, SELFPAY ==
--- NOTE | ~2022-12-07 | XR_ITS ---
EXAMINATION: XR CHEST CLINICAL INFORMATION: Pleuritic chest pain COMPARISON: Previous chest x-ray most recent July 2020 TECHNIQUE: 2 views of the chest were obtained. FINDINGS: The cardiac and mediastinal contours are normal. The lungs are clear. No pleural effusion or pneumothorax. Curvature of the thoracic spine to the right and degenerative changes. XR/XR chest 2V IMPRESSION: No evidence for acute disease in the chest.
== END 2022-12-07 08:59 | disposition home or self-care (01) ==
LOC: HO.HHCX 08:58
PROVIDERS: Visit Provider Emergency Medicine
DX: R07.81 Pleurodynia (principal)
CPT/HCPCS: 71046

== ENCOUNTER → 2022-12-13 13:13 | Outpatient (BNVA) | payer MEDICAID, SELFPAY | PROVIDERS: Visit Provider Internal Medicine | DX: I48.0 Paroxysmal atrial fibrillation (principal); I10 Essential (primary) hypertension; G47.33 Obstructive sleep apnea (adult) (pediatric); Z79.01 Long term (current) use of anticoagulants; Z79.899 Other long term (current) drug therapy | CPT/HCPCS: 93005; 99212 ==